=== PATIENT | female | born 1955 | race Caucasian/White ===

== ENCOUNTER 2021-04-21 13:32 | Outpatient (CLI) | payer BC | END 2021-04-21 13:33 | disposition home or self-care (01) | LOC: CSHMAMMO 13:32 | PROVIDERS: ATTEND Obstetrics & Gynecology | DX: Z12.31 Encounter for screening mammogram for malignant neoplasm of breast (principal); Z80.3 Family history of malignant neoplasm of breast; Z85.820 Personal history of malignant melanoma of skin | CPT/HCPCS: 77063; 77067 ==

== ENCOUNTER 2022-03-25 14:04 | Outpatient (CLI) | payer BC | END 2022-03-25 14:05 | disposition home or self-care (01) | LOC: CSHMAMMO 14:04 | PROVIDERS: ATTEND Obstetrics & Gynecology | DX: Z13.820 Encounter for screening for osteoporosis (principal); M85.851 Other specified disorders of bone density and structure, right thigh; M85.852 Other specified disorders of bone density and structure, left thigh | CPT/HCPCS: 77080 ==

== ENCOUNTER 2022-05-25 14:52 | Outpatient (CLI) | payer BC | END 2022-05-25 14:53 | disposition home or self-care (01) | LOC: CSHMAMMO 14:52 | PROVIDERS: ATTEND Obstetrics & Gynecology | DX: Z12.31 Encounter for screening mammogram for malignant neoplasm of breast (principal); R92.1 Mammographic calcification found on diagnostic imaging of breast; Z85.3 Personal history of malignant neoplasm of breast; Z80.3 Family history of malignant neoplasm of breast | CPT/HCPCS: 77063; 77067 ==

== ENCOUNTER 2023-06-23 13:51 | Outpatient (CLI) | payer BC | END 2023-06-23 13:52 | disposition home or self-care (01) | LOC: CSHMAMMO 13:51 | PROVIDERS: ATTEND Obstetrics & Gynecology | DX: Z12.31 Encounter for screening mammogram for malignant neoplasm of breast (principal); Z80.3 Family history of malignant neoplasm of breast; Z85.820 Personal history of malignant melanoma of skin | CPT/HCPCS: 77063; 77067 ==

== ENCOUNTER 2025-01-22 10:38 | Outpatient (CLI) | payer BC ==
[2025-01-22 11:11] LABS: Estimated GFR - POC 70.0
== END 2025-01-22 10:39 | disposition home or self-care (01) ==
LOC: CSHMRI 10:38
PROVIDERS: ATTEND Surgery
DX: N64.52 Nipple discharge (principal)
CPT/HCPCS: 36415; 82565; C8908

== ENCOUNTER → 2025-01-25 | Day surgery (SDC) | payer BC | LOC: CSHULT 12:22 | PROVIDERS: ATTEND Surgery | PROC: 0HBU3ZX Excision of Left Breast, Percutaneous Approach, Diagnostic (ICD-10-PCS; principal; 2025-01-25) | DX: N60.32 Fibrosclerosis of left breast (principal); N60.02 Solitary cyst of left breast | CPT/HCPCS: 19083; 88305; A4648 ==